=== PATIENT | male | born 1970 | race Caucasian/White ===

== ENCOUNTER 2021-01-07 14:38 | Emergency (ER) | payer BC ==
[2021-01-07 14:49] VITALS: TEMP 98.4
--- NOTE | 2021-01-07 15:58 | XR ---
EXAMINATION TYPE: XR chest 2V DATE OF EXAM: 01/07/2021 COMPARISON: NONE HISTORY: Cough, shortness of breath TECHNIQUE: Frontal and lateral views of the chest are obtained. FINDINGS: Bilateral patchy airspace disease is present. No pneumothorax or pleural effusion. Cardiac mediastinal silhouette is within normal limits. IMPRESSION: Correlate for pneumonia
[2021-01-07] MEDS ORDERED: DEXAMETHASONE SOD PHOSPHATE 10 MG/ML 1 ML VIAL IM STA (17:43)
--- NOTE | 2021-01-07 17:48 | ED ---
General Adult HPI - General Chief complaint: Upper Respiratory Infection Stated complaint: Fever,Low BP Time Seen by Provider: 01/07/21 17:37 Source: patient, RN notes reviewed, old records reviewed Mode of arrival: ambulatory Limitations: no limitations - History of Present Illness Initial comments: 50-year-old male history of hypertension presents with at least 10 days of cough, congestion, loss of taste and smell, fever. He states that he had a fever which broke this morning. He has been taking home remedies without significant relief. He does report some chest tightness and significant cough as well. All the past medical history is hypertension. He denies significant vomiting or diarrhea. - Related Data Previous Rx's Medication Instructions Recorded Dexamethasone [Decadron] 6 mg PO DAILY 10 Days #10 tablet 01/07/21 Allergies Allergy/AdvReac Type Severity Reaction Status Date / Time codeine Allergy Rash/Hives Verified 01/07/21 14:49 Review of Systems ROS Statement: Those systems with pertinent positive or pertinent negative responses have been documented in the HPI. ROS Other: All systems not noted in ROS Statement are negative. Past Medical History Past Medical History: Hypertension History of Any Multi-Drug Resistant Organisms: None Reported Past Surgical History: Hernia Repair Past Psychological History: No Psychological Hx Reported Smoking Status: Never smoker Past Alcohol Use History: Daily Past Drug Use History: None Reported General Exam Limitations: no limitations General appearance: alert, in no apparent distress Head exam: Present: atraumatic, normocephalic Eye exam: Present: normal appearance, PERRL ENT exam: Present: mucous membranes dry Neck exam: Present: normal inspection Respiratory exam: Present: rales, rhonchi. Absent: respiratory distress Cardiovascular Exam: Present: regular rate, normal rhythm GI/Abdominal exam: Present: soft. Absent: distended, tenderness, guarding, rebound Back exam: Present: normal inspection Neurological exam: Present: alert, oriented X3 Psychiatric exam: Present: normal affect, normal mood Skin exam: Present: warm, dry, intact. Absent: cyanosis, diaphoretic Course Vital Signs 01/07/21 14:43 Temperature 98.4 F Pulse Rate 108 H Respiratory 22 Rate Blood Pressure 108/71 O2 Sat by Pulse 95 Oximetry Medical Decision Making - Medical Decision Making 50-year-old male presenting with symptoms consistent with coronavirus. His nasal swab is negative although I have a high level of suspicion for coronavirus appears chest x-ray showed bilateral pneumonia. Patient is in no respiratory distress, is not hypoxic. Symptoms have been present for 10 days. He is not qualified for monoclonal antibody given the duration of his symptoms. I did initiate steroids in this patient. He is instructed to monitor his breathing at home and given strict return parameters. Additionally will take vitamin C, zinc, vitamin D. - Lab Data Lab Results 01/07/21 Range/Units 14:54 Coronavirus (PCR) Not Detected (Not Detectd) Disposition Clinical Impression: Pneumonia due to COVID-19 virus Disposition: HOME SELF-CARE Condition: Fair Instructions (If sedation given, give patient instructions): Coronavirus Disease 2019 (COVID-19) Additional Instructions: Please monitor your breathing, please return with any worsening or changing respiratory issues. Please take vitamin C, vitamin D and zinc [id number]. Additionally please start steroid prescription and follow up with her primary care physician. Return to the emergency department if needed. Prescriptions: Dexamethasone [Decadron] 6 mg PO DAILY 10 Days #10 tablet Is patient prescribed a controlled substance at d/c from ED?: No Referrals: Juju Fuller MD [Primary Care Provider] - 1-2 days Time of Disposition: 17:46
[2021-01-07 17:57] VITALS: BP 136/79; PULSE 86; RESP 16
== END 2021-01-07 18:22 | disposition home or self-care (01) ==
LOC: EC 14:38
DX: U07.1 COVID-19 (principal); J12.82 Pneumonia due to coronavirus disease 2019; I10 Essential (primary) hypertension
CPT/HCPCS: 87635; 71046; 99285; 96372; J1100

== ENCOUNTER 2024-06-09 12:10 | Day surgery (SDC) | payer OTHER ==
[2024-06-06 11:01] VITALS: BMI 32.1
[2024-06-09] MEDS: IV FLUID CONTINUATION 1,000 ML IV ONE (13:14)
[2024-06-09 13:22] VITALS: RESP 16; TEMP 97.8
[2024-06-09] MEDS: LACTATED RINGERS 1,000 ML IV SCH (13:34)
[2024-06-09] MEDS ORDERED: LIDOCAINE 1% INJ 10MG/ML (20 ML MDV) ONE (14:10)
[2024-06-09] MEDS ORDERED: PROPOFOL 10 MG/ML 20 ML VIAL IV ONE (14:10)
--- NOTE | 2024-06-09 15:09 | P.PCN ---
Date of Procedure: 06/09/24 Procedure(s) Performed: BRIEF HISTORY: Patient is a 53-year-old pleasant white male scheduled for an elective colonoscopy as a part of screening for colon cancer/positive Cologuard. PROCEDURE PERFORMED: Colonoscopy with snare polypectomy, Endo Clip placement, tattooing with Onelia ink. PREOPERATIVE DIAGNOSIS: Screening for colon cancer/positive Cologuard. IV sedation per Anesthesia. PROCEDURE: After informed consent was obtained, the patient, was brought into the endoscopy unit. IV sedation was administered by Anesthesia under continuous monitoring. Digital rectal examination was normal. Initially the Olympus CF-160 flexible video colonoscope was then inserted in the rectum, gradually advanced into the cecum without any difficulty. Careful examination was performed as the scope was gradually being withdrawn. Ileocecal valve and the appendiceal orifice were visualized and appeared normal. Prep was excellent. Mucosa of the cecum, appeared normal. The ascending colon there was a 1 cm polyp removed by snare polypectomy. In the hepatic flexure there was a 4 cm broad-based polyp that was initially biopsied and as the clinical suspicion for malignancy was low I proceeded with snare polypectomy. Hot snare polypectomy was performed and almost 90% of polyp was removed. Following this 3 endoclips were placed to prevent post polypectomy bleed. Following this study was performed using Onelia ink. Using the last note the polyps were retrieved several times and repeat colonoscopy was performed. In the descending colon there were 2 polyps measuring 5 mm and 1 cm in size removed by snare polypectomy. Rest of the descending colon, sigmoid colon, and rectum appeared normal. In the rectum there was a 1.2 cm polyp removed by snare polypectomy. Retroflexion was performed in the rectum and no lesions were seen. The patient tolerated the procedure well. IMPRESSION: 1 cm ascending colon polyp status post snare polypectomy 4 cm broad-based hepatic rectal polyp status post piecemeal snare polypectomy followed by Endo Clip placement and tattooing with Onelia ink (approximately 90% of the polyp removed) 5 mm and 1 cm descending colon polyp status post polypectomy 1.2 cm rectal polyp status post snare polypectomy RECOMMENDATIONS: Findings of this examination were discussed with the patient as well as his family. He was advised to follow-up with the biopsy results. If the biopsy reveals adenoma we will plan a repeat colonoscopy in 1 to 2 months for complete polypectomy.
[2024-06-09 15:15] VITALS: BP 116/76; PULSE 81
== END 2024-06-09 15:35 | disposition home or self-care (01) ==
LOC: ORWHC2ENDO 12:10
PROVIDERS: ATTEND Internal Medicine Gastroenterology
DX: D12.2 Benign neoplasm of ascending colon (principal); D12.3 Benign neoplasm of transverse colon; D12.4 Benign neoplasm of descending colon; D12.8 Benign neoplasm of rectum; I10 Essential (primary) hypertension; Z88.0 Allergy status to penicillin; Z88.5 Allergy status to narcotic agent; Z79.899 Other long term (current) drug therapy
CPT/HCPCS: 88305; 45380; 45385; 45381; J2001; J2704

== ENCOUNTER 2024-08-02 10:11 | Day surgery (SDC) | payer OTHER ==
[2024-08-02] MEDS: IV FLUID CONTINUATION 1,000 ML IV ONE (10:32)
[2024-08-02 10:41] VITALS: TEMP 97.3
[2024-08-02] MEDS: LACTATED RINGERS 1,000 ML IV SCH (10:45)
[2024-08-02] MEDS ORDERED: PROPOFOL 10 MG/ML 20 ML VIAL IV ONE (11:28)
--- NOTE | 2024-08-02 11:56 | P.PCN ---
Date of Procedure: 08/02/24 Procedure(s) Performed: BRIEF HISTORY: Patient is a 53-year-old pleasant white male scheduled for an elective colonoscopy as a part of follow-up of not hepatic flexure polyp that was removed and a colonoscopy in May 2024. Most of the polyp was removed and biopsies revealed tubulovillous adenoma. He is scheduled for follow-up colonoscopy today. PROCEDURE PERFORMED: Colonoscopy with snare polypectomy with. PREOPERATIVE DIAGNOSIS: Follow-up large hepatic flexure polyp. IV sedation per Anesthesia. PROCEDURE: After informed consent was obtained, the patient, was brought into the endoscopy unit. IV sedation was administered by Anesthesia under continuous monitoring. Digital rectal examination was normal. Initially the Olympus CF-160 flexible video colonoscope was then inserted in the rectum, gradually advanced into the cecum without any difficulty. Careful examination was performed as the scope was gradually being withdrawn. Ileocecal valve and the appendiceal orifice were visualized and appeared normal. Prep was excellent. Mucosa of the cecum, ascending colon normal. The hepatic flexure at the site of previous polypectomy there was a 2 cm ascending polyp identified which was removed by piecemeal snare polypectomy. The previously placed endoclips were still in place. Adjacent to the clips there was some polypoid tissue noted which was removed by cold snare polypectomy. Almost complete polypectomy accomplished. In the transverse colon there was a 3 mm and 4 mm polyp removed by cold snare polypectomy. Rest of the, transverse colon, descending colon, sigmoid colon, and rectum appeared normal. Scattered sigmoid diverticulosis seen. Retroflexion was performed in the rectum and no lesions were seen. The patient tolerated the procedure well. IMPRESSION: 2 cm residual polyp in the hepatic flexure which still had 2 endoclips that were placed 6 weeks ago. Status post polypectomy 3 mm and 4 mm transverse colon polyp status post cold snare polypectomy Scattered sigmoid diverticulosis RECOMMENDATIONS: Findings of this examination were discussed with the patient as well as his family. He was advised to follow-up with biopsy results in 2 weeks. Based on the biopsy results we will plan a repeat colonoscopy in 3 months to 6 months.
[2024-08-02 12:18] VITALS: BP 108/70; PULSE 70; RESP 16
== END 2024-08-02 12:35 | disposition home or self-care (01) ==
LOC: ORWHC2ENDO 10:11
PROVIDERS: ATTEND Internal Medicine Gastroenterology
DX: D12.3 Benign neoplasm of transverse colon (principal); K57.30 Diverticulosis of large intestine without perforation or abscess without bleeding; I10 Essential (primary) hypertension; Z79.899 Other long term (current) drug therapy; Z88.5 Allergy status to narcotic agent; Z88.0 Allergy status to penicillin
CPT/HCPCS: 45385; J2704; 88305

== ENCOUNTER → 2025-01-29 | Outpatient (CLI) | payer OTHER ==
--- NOTE | 2025-01-30 08:38 | XR ---
EXAMINATION TYPE: XR abdomen 1V DATE OF EXAM: 01/29/2025 2:30 PM COMPARISON: None CLINICAL INDICATION: Male, 54 years old with history of D12.6; PHH, pain TECHNIQUE: One radiographic view of the abdomen was obtained. FINDINGS: Lung bases are clear. Mild stool burden. No dilated small bowel. Right-sided pelvic phleboliths. No definite suspicious clement cification is seen. No definite retained metal is identified. IMPRESSION: Mild scattered stool. Nonobstructive bowel gas pattern. No definite retained surgical clips with part icular attention to the region of the hepatic flexure. [facility], Workstation: [id number], 01/30/2025 8:36 AM
== END | disposition home or self-care (01) ==
LOC: RADXRMAIN 14:13
PROVIDERS: ATTEND Internal Medicine Gastroenterology
DX: D12.6 Benign neoplasm of colon, unspecified (principal)
CPT/HCPCS: 74018

== ENCOUNTER 2025-03-07 09:14 | Day surgery (SDC) | payer OTHER ==
[~2025-03-07 09:14] MED LIST: LIDOCAINE 1% (10MG/ML) FOR IV START INTRADERMA PRN
[2025-03-07] MEDS: LACTATED RINGERS 1,000 ML IV SCH (09:57)
[2025-03-07] MEDS: IV FLUID CONTINUATION 1,000 ML IV ONE (09:57)
[2025-03-07 10:00] VITALS: RESP 18; TEMP 97.7
[2025-03-07] MEDS ORDERED: LIDOCAINE 2% (PF) 20 MG/ML 5 ML VIAL ONE (10:41)
[2025-03-07] MEDS ORDERED: PROPOFOL 10 MG/ML 20 ML VIAL IV ONE (10:41)
--- NOTE | 2025-03-07 11:08 | P.PCN ---
Date of Procedure: 03/07/25 Procedure(s) Performed: BRIEF HISTORY: Patient is a 54-year-old pleasant white male scheduled for an elective colonoscopy as a part of follow-up of large hepatic flexure polyp noted on colonoscopy in May 2024. He had a 4 cm broad-based polyp that was removed by snare polypectomy and endoclips were placed. He had a repeat colonoscopy July 2024 but there was some residual polyp identified however the endoclips were still in place and hence complete polypectomy could not be performed. He scheduled for repeat colonoscopy in 6 months. PROCEDURE PERFORMED: Colonoscopy with snare polypectomy and argon plasma coagulation. PREOPERATIVE DIAGNOSIS: Follow-up large hepatic flexure polyp July 2024. IV sedation per Anesthesia. PROCEDURE: After informed consent was obtained, the patient, was brought into the endoscopy unit. IV sedation was administered by Anesthesia under continuous monitoring. Digital rectal examination was normal. Initially the Olympus CF-160 flexible video colonoscope was then inserted in the rectum, gradually advanced into the cecum without any difficulty. Careful examination was performed as the scope was gradually being withdrawn. Ileocecal valve and the appendiceal orifice were visualized and appeared normal. Prep was excellent. Mucosa of the cecum, ascending colon, appeared normal. The hepatic flexure at the site of previous polypectomy there was a 2.5 cm linear residual polyp identified. This was removed by snare polypectomy followed by argon possible coagulation and complete polypectomy was accomplished. Rest of the transverse colon, descending colon, sigmoid colon, and rectum appeared normal. Katter sigmoid diverticulosis. Retroflexion was performed in the rectum and no lesions were seen. The patient tolerated the procedure well. IMPRESSION: 2.5 cm linear residual polyp in the hepatic flexure at the site of previous polypectomy status post snare polypectomy followed by argon plasma coagulation and complete polypectomy accomplished Sigmoid diverticulosis. RECOMMENDATIONS: Findings of this examination were discussed with the patient as well as his family. He was advised to follow with the biopsy results and we will plan on repeat colonoscopy in 1 year..
[2025-03-07 11:15] VITALS: PULSE 64
[2025-03-07 11:31] VITALS: BP 97/62
== END 2025-03-07 11:48 | disposition home or self-care (01) ==
LOC: ORWHC2ENDO 09:14
PROVIDERS: ATTEND Internal Medicine Gastroenterology
DX: D12.3 Benign neoplasm of transverse colon (principal); K57.30 Diverticulosis of large intestine without perforation or abscess without bleeding; I10 Essential (primary) hypertension; Z79.899 Other long term (current) drug therapy; Z86.0100 Personal history of colon polyps, unspecified; Z88.5 Allergy status to narcotic agent; Z88.0 Allergy status to penicillin
CPT/HCPCS: 88305; 45385; 45388; J2704; J2003